=== PATIENT | female | born 1940 | race Caucasian/White ===

== ENCOUNTER 2019-03-02 12:05 | Day surgery (SDC) | payer MEDICARE ==
[2019-03-02] VITALS (8 sets, daily range): BP systolic 123–153; BP diastolic 24–81
[~2019-03-02] VITALS: Ht 154.9 cm; Wt 69.3 kg
[2019-03-02] MEDS ORDERED: normal saline 1,000 ML IV SCH (12:25)
[2019-03-02] MEDS ORDERED: diphenhydrAMINE 25mg capsule PO PRN (12:25)
[2019-03-02 13:05] LABS: BASOPHILS % (AUTO) 0.2 % (0-1); EOSINOPHILS # (AUTO) 0.1 X10'3 (0-0.9); EOSINOPHILS % (AUTO) 1.9 % (0-6); HEMATOCRIT 41.6 % (35.0-45.0); HEMOGLOBIN 14.3 g/dl (12.0-16.0); LYMPHOCYTES % (AUTO) 19.4 % (21-51); MEAN CORPUSCULAR HEMOGLOBIN 30.6 PG (27.0-31.0); MEAN CORPUSCULAR HGB CONC 34.3 g/dL (33.0-36.5); MEAN CORPUSCULAR VOLUME 89.2 FL (78-98); MEAN PLATELET VOLUME 8.7 FL (7.4-10.4); MONOCYTES # (AUTO) 0.3 X10'3 (0-0.9); MONOCYTES % (AUTO) 6.6 % (2-12); NEUTROPHILS # (AUTO) 3.7 X10'3 (1.8-7.7); NEUTROPHILS % (AUTO) 71.9 % (42-75); PLATELET COUNT 195 X10'3 (140-440); RED BLOOD COUNT 4.66 X10'6 (4.20-5.60); RED CELL DISTRIBUTION WIDTH 14.3 % (11.5-14.5); WHITE BLOOD COUNT 5.1 X10'3 (4.5-11.0)
[2019-03-02 13:18] LABS: ALBUMIN 4.1 G/DL (3.4-5.0); ANION GAP 8 (8-16); BLOOD UREA NITROGEN 13 MG/DL (7-18); BUN/CREATININE RATIO 11.6 (6.6-38.0); CALCIUM 9.1 MG/DL (8.5-10.1); CHLORIDE 105 MMOL/L (99-107); CREATININE 1.12 MG/DL (0.40-0.90); GLUCOSE 103 MG/DL (70-104); POTASSIUM 4.2 MMOL/L (3.5-5.1); SODIUM 140 MMOL/L (135-145); TOTAL CARBON DIOXIDE 27.5 MMOL/L (24-32); eGFR 47 ML/MIN
[2019-03-02] MEDS ORDERED: ATOR40TA PO (13:30)
[2019-03-02] MEDS ORDERED: ALPR-624 PO (13:30)
[2019-03-02] MEDS ORDERED: LOSA25TA96 PO (13:30)
[2019-03-02] MEDS ORDERED: AMLO2.5T2 PO (13:30)
[2019-03-02] MEDS ORDERED: LEVO25TA2 PO (13:30)
[2019-03-02] MEDS ORDERED: MAGN400C PO (13:30)
[2019-03-02] MEDS ORDERED: ASPI-1265 PO (13:30)
[2019-03-02] MEDS ORDERED: PANT-47 PO (13:30)
[2019-03-02] MEDS ORDERED: LACT1CAP65 PO (13:30)
[2019-03-02] MEDS ORDERED: midazolam 2 mg/2 ml injection ONE ×2 (15:29→16:35)
[2019-03-02] MEDS ORDERED: fentaNYL/PF 50MCG/1 ML 2ML syringe ONE (15:29)
[2019-03-02] MEDS ORDERED: iohexol 350MG/ML 100ml bottle IV ONE (15:30)
[2019-03-02] MEDS ORDERED: heparin 1,000unit/ml 10ml vial 10 ML ONE (15:30)
[2019-03-02] MEDS ORDERED: iohexol 350 MG/ML 50ML vial IV ONE (15:30)
[2019-03-02] MEDS ORDERED: LIDOcaine 1% (10mg/ml)w/preservative injection 20ml MDV ONE (16:37)
[2019-03-02] MEDS ORDERED: HYDROcodone/acetaminophen 5mg/325mg tablet PO PRN (17:40)
[2019-03-02] MEDS ORDERED: HYDROcodone/acetaminophen 10/325mg tab PO PRN (17:40)
[2019-03-02] MEDS ORDERED: normal saline 1000ml 1,000 ML IV SCH (17:40)
[2019-03-02] MEDS ORDERED: proCHLORperazine 10 MG/2 ml inj IV PRN (17:40)
[2019-03-02] MEDS ORDERED: ondansetron/PF 4mg/2ml inj IV PRN (17:40)
== END 2019-03-02 20:00 | disposition home or self-care (01) ==
LOC: SSTAY O 12:05
PROVIDERS: ATTEND Internal Medicine Cardiovascular Disease
DX: I35.0 Nonrheumatic aortic (valve) stenosis (principal); I25.10 Atherosclerotic heart disease of native coronary artery without angina pectoris; I34.2 Nonrheumatic mitral (valve) stenosis; I11.0 Hypertensive heart disease with heart failure; I50.32 Chronic diastolic (congestive) heart failure; I49.5 Sick sinus syndrome; I27.20 Pulmonary hypertension, unspecified; E78.5 Hyperlipidemia, unspecified; Z85.72 Personal history of non-Hodgkin lymphomas; Z86.73 Personal history of transient ischemic attack (TIA), and cerebral infarction without residual deficits; Z79.82 Long term (current) use of aspirin; Z79.899 Other long term (current) drug therapy; Z90.710 Acquired absence of both cervix and uterus; Z90.49 Acquired absence of other specified parts of digestive tract; Z88.0 Allergy status to penicillin; Z95.5 Presence of coronary angioplasty implant and graft
CPT/HCPCS: 36415; 80048; 82948; 83735; 85025; 85610; 93460; 99152; 99153; C1769; C1894; J1644; J2001; J2250; J3010; J7030; Q0163; Q9967; 93005; A4620; A6258; C1760

== ENCOUNTER 2019-06-13 12:51 | Outpatient (CLI) | payer MEDICARE ==
[~2019-06-13 12:51] MED LIST: ALPR-624 PO; AMLO2.5T2 PO; ASPI-1265 PO; ATOR40TA PO; LACT1CAP65 PO; LEVO25TA2 PO; LOSA25TA96 PO; MAGN400C PO; PANT-47 PO
[2019-06-13 13:22] LABS: CLARITY,URINE SLIGHTLY CLOUDY (Clear); COLOR,URINE YELLOW (Yellow); GLUCOSE, URINE NEGATIVE (Neg); KETONES,URINE NEGATIVE (Neg); LEUKOCYTE ESTERASE ,URINE MODERATE (Neg); NITRITES, URINE POSITIVE (Neg); OCCULT BLOOD,URINE SMALL (Neg); PROTEIN,URINE NEGATIVE (Neg); UROBILINOGEN,URINE 0.2 E.U/dL (0.2-1.0)
[2019-06-13 13:39] LABS: BACTERIA,URINE 4+ /HPF (Neg); RBC,URINE 0-2 /HPF (0-2); UA COLLECTION TYPE NON-SPECIFIED; WBC,URINE 20-30 /HPF (0-4)
[2019-06-13 13:40] LABS: MUCUS STRANDS NONE SEEN /LPF (Neg); SQUAMOUS EPITHELIAL CELL,UR FEW /LPF (FEW)
== END 2019-06-13 23:59 | disposition home or self-care (01) ==
LOC: LAB SPEC 12:51
PROVIDERS: ATTEND Internal Medicine
DX: I35.0 Nonrheumatic aortic (valve) stenosis (principal); Z79.899 Other long term (current) drug therapy
CPT/HCPCS: 81001; 87077; 87088; 87186